=== PATIENT | male | born 1960 | race Caucasian/White ===

== ENCOUNTER 2016-10-09 17:21 | Emergency (ER) | payer OTHER ==
[~2016-10-09] VITALS: Ht 172.7 cm; Wt 75.0 kg
[~2016-10-09 17:21] MED LIST: DICL75 PO; PENI500T PO; Z.0.NO CURRENT MEDS
[2016-10-09 17:25] VITALS: BP 139/80; PULSE 75; RESP 20; TEMP 97.9; O2SAT 99
--- NOTE | 2016-10-09 17:27 | PD ---
Physical Exam Date Seen by Provider: Oct 09, 2016 Time Seen by Provider: 17:26 Narrative 55 yo male here for lower back pain. Possible injury from twisting. Pain is severe per patient. Cannot sit. No falls. Pain does not radiate. Vitals are stable in triage. Awaiting Bed placement. Data Data Last Documented VS Vital Signs Date Time Temp Pulse Resp B/P Pulse Ox O2 Delivery O2 Flow Rate FiO2 10/09/16 17:25 97.9 75 20 139/80 99 Room Air [facility] Medical Record Reviewed: Yes Supervised Visit with FARZAD: Alirio Donald Oct 09, 2016 17:27
[2016-10-09] MEDS ORDERED: CYCL1TAB29 PO (19:30)
[2016-10-09] MEDS ORDERED: DICL75TA PO (19:30)
--- NOTE | 2016-10-09 19:34 | PD ---
HPI Chief Complaint: Back/ Neck Pain or Injury Time Seen by Provider: 19:32 Travel History International Travel<30 days: No Contact w/Intl Traveler<30days: No Traveled to known affect area: No History of Present Illness HPI 55-year-old male presents to emergency Department with complaints of left lower back pain 2 days. He states that he felt that he had twisted awkwardly and pulled his back. States the pain in his left lower back into his left buttocks. Pain is moderate. Worse with bending and movement. No alleviating factors. No acute bowel or bladder changes. Denies history of back problems in the past. [facility] Past Medical History Medical History: Denies Significant Hx Blood Disorders: No Cancer: No Cardiovascular Problems: No Endocrine: No Genitourinary: No Immune Disorder: No Musculoskeletal: Yes (CHRONIC BACK PAIN) Neurologic: No Psychiatric: No Reproductive: No Respiratory: No Tetanus Vaccination: < 5 Years Past Surgical History Surgical History: No Previous Surgery AICD: No Arteriovenous Shunt: No Insulin Pump: No Joint Replacement: No Social History Alcohol Use: No Tobacco Use: Yes (1/2 PPD) Substance Use: No Allergies-Medications (Allergen,Severity, Reaction): Coded Allergies: No Known Allergies (Verified , 10/09/16) Reported Meds & Prescriptions Reported Meds & Active Scripts Active Diclofenac Sodium DR (Diclofenac Sodium) 75 Mg Tabdr 75 Mg PO BID Flexeril (Cyclobenzaprine HCl) 10 Mg Tab 10 Mg PO TID Review of Systems Except as stated in HPI: all other systems reviewed are Neg Physical Exam Narrative GENERAL: Well-developed, well-nourished in no apparent distress. Nontoxic appearing. HEAD: Normocephalic, atraumatic. EYES: Pupils equal round and reactive. Extraocular motions intact. No scleral icterus. No injection or drainage. ENT: Nose clear. Throat without erythema, tonsillar hypertrophy or exudate. Uvula midline. Airway patent. NECK: Trachea midline. Supple, nontender, moves head freely. No central bony tenderness or spasm. CARDIOVASCULAR: Regular rate and rhythm without murmurs, gallops, or rubs. RESPIRATORY: Clear to auscultation. Breath sounds equal bilaterally. No wheezes , rales, or rhonchi. GASTROINTESTINAL: Abdomen soft, non-tender, nondistended. No hepato-splenomegaly , or palpable masses. No guarding. EXTREMITIES: No clubbing, cyanosis, or edema. No joint tenderness. BACK: No central bony tenderness to palpation of the dorsal lumbar spine. Patient has left paralumbar tenderness with mild spasm. Decreased range of motion to 70. Heel and toe stand. No saddle anesthesia. Without deformity. No flank tenderness. NEUROLOGICAL: Awake, alert and oriented x 3 .Cranial nerves grossly intact. Motor and sensory grossly within normal limits. Normal speech. Data Data Last Documented VS Vital Signs Date Time Temp Pulse Resp B/P Pulse Ox O2 Delivery O2 Flow Rate FiO2 10/09/16 17:25 97.9 75 20 139/80 99 Room Air Orders Cyclobenzaprine (Flexeril) (10/09/16 19:45) Naproxen (Naprosyn) (10/09/16 19:45) MDM Medical Decision Making Medical Screen Exam Complete: Yes Emergency Medical Condition: Yes Medical Record Reviewed: Yes Differential Diagnosis MDM: High Differential diagnoses: AAA,Fracture, sprain, strain, HNP, nerve or vascular injury, epidural abscess, pilonidal cyst, pyelonephritis, UTI, nephrolithiasis, ureterolithiasis Narrative Course Patient's given Naprosyn 500 and Flexeril 10 mg by mouth. This is acute back strain Diagnosis Primary Impression: acute back sprain Patient Instructions: General Instructions Departure Forms: Tests/Procedures, Work Release Special Instructions: No work 3 days. Additional Instructions: Rest. Ice for the next 3 days followed by heat . Flexeril and Voltaren. Follow-up with a primary care doctor in one week. Return to the ER for emergencies. Med/Other Pt SpecificInfo: Prescription(s) given Scripts Diclofenac Sodium DR 75 Mg Tabdr75 Mg PO BID #20 TAB Prov:Jatinder Armendariz MD 10/09/16 Cyclobenzaprine (Flexeril)10 Mg Tab10 Mg PO TID #30 TAB Prov:Jatinder Armendariz MD 10/09/16 Disposition: 01 DISCHARGE HOME Condition: Stable Freddy Fine Oct 09, 2016 19:34
[2016-10-09] MEDS ORDERED: NAPROXEN 500 MG TAB PO ONE (19:45)
[2016-10-09] MEDS ORDERED: CYCLOBENZAPRINE HCL 10 MG TAB PO ONE (19:45)
== END 2016-10-09 20:06 | disposition home or self-care (01) ==
LOC: NEPK 17:21
DX: S39.012A Strain of muscle, fascia and tendon of lower back, initial encounter (principal); F17.200 Nicotine dependence, unspecified, uncomplicated; Z87.39 Personal history of other diseases of the musculoskeletal system and connective tissue; X50.1XXA Overexertion from prolonged static or awkward postures, initial encounter
CPT/HCPCS: 99284

== ENCOUNTER 2017-05-23 00:15 | Emergency (ER) | payer OTHER ==
[~2017-05-23] VITALS: Ht 180.3 cm; Wt 70.0 kg
[~2017-05-23 00:15] MED LIST changes: +CYCL10TA PO; -DICL75 PO; +DICL75TA PO; -PENI500T PO; -Z.0.NO CURRENT MEDS
[2017-05-23 00:22] VITALS: BP 124/81; PULSE 80; RESP 16; TEMP 97.3; O2SAT 100
--- NOTE | 2017-05-23 02:01 | PD ---
HPI Chief Complaint: GI Complaint Time Seen by Provider: 01:28 Travel History International Travel<30 days: No Contact w/Intl Traveler<30days: No Traveled to known affect area: No History of Present Illness HPI Patient is a 56-year-old male who says he has had constipation for 2 days. He says he does not have a history of constipation is only ever happened to him once before. Said colonoscopies yearly since he was 51 at the [facility]. He has no nausea no vomiting no diarrhea constipation only and left lower quadrant pain. Has no chest pain no nausea no vomiting. No cardiac history, no lung history no renal history. No change in his diet. No family history of colon cancer. Patient took an Ex-Lax chocolate bar "that they sell at the [employer] store without any relief" of his symptoms . he can feel as if his pressure right at his rectum PFSH Past Medical History Blood Disorders: No Cancer: No Cardiovascular Problems: No Endocrine: No Genitourinary: No Immune Disorder: No Musculoskeletal: Yes (CHRONIC BACK PAIN) Neurologic: No Psychiatric: No Reproductive: No Respiratory: No Past Surgical History AICD: No Arteriovenous Shunt: No Insulin Pump: No Joint Replacement: No Social History Alcohol Use: No Tobacco Use: Yes (/2 PPD) Substance Use: No Allergies-Medications (Allergen,Severity, Reaction): Coded Allergies: No Known Allergies (Verified Adverse Reaction, Unknown, 05/23/17) Reported Meds & Prescriptions Reported Meds & Active Scripts Active Miralax Powder (Polyethylene Glycol 3350 Powder) 17 Gm Powd 17 Gm PO DAILY Mix and dissolve one measuring cap-ful (17 grams) in water or juice. Diclofenac Sodium DR (Diclofenac Sodium) 75 Mg Tabdr 75 Mg PO BID Flexeril (Cyclobenzaprine HCl) 10 Mg Tab 10 Mg PO TID Physical Exam Narrative GENERAL: mild uncomfortable appearance SKIN: Warm and dry. HEAD: Atraumatic. Normocephalic. EYES: Pupils equal and round. No scleral icterus. No injection or drainage. ENT: No nasal bleeding or discharge. Mucous membranes pink and moist. NECK: Trachea midline. No JVD. CARDIOVASCULAR: Regular rate and rhythm. RESPIRATORY: No accessory muscle use. Clear to auscultation. Breath sounds equal bilaterally. GASTROINTESTINAL: Abdomen suprapubic to LLQ pain with palpation, nondistended. Hepatic and splenic margins not palpable. left lower quad pain MUSCULOSKELETAL: Extremities without clubbing, cyanosis, or edema. No obvious deformities. NEUROLOGICAL: Awake and alert. No obvious cranial nerve deficits. Motor grossly within normal limits. Five out of 5 muscle strength in the arms and legs. Normal speech. PSYCHIATRIC: Appropriate mood and affect; insight and judgment normal. RECTAL EXAM, Large amount of hard stool felt in rectal vault. MANUAL disempaction and fleet enema placed during rectal exam, with successful large BM after on bedside commode Data Data Last Documented VS Orders Orders Fleets Enema (Adult) (Fleets Enema (Adul (05/23/17 02:30) Ed Discharge Order (05/23/17 02:59) [facility] Medical Decision Making Medical Screen Exam Complete: Yes Emergency Medical Condition: Yes Differential Diagnosis constipation vs colonic mass vs medication induced constipation .. Narrative Course enema and digital attempt to disempact. then bedside commode and successful BM pt feels great relief Procedures Procedure Narrative manual disimpaction by this MD and enema solution inserted Diagnosis Primary Impression: Constipation Qualified Codes: K59.00 - Constipation, unspecified Patient Instructions: Constipation (ED), General Instructions Scripts Polyethylene Glycol 3350 Powder (Miralax Powder) 17 Gm Powd 17 GM PO DAILY for Constipation, #1 CAN 0 Refills Mix and dissolve one measuring cap-ful (17 grams) in water or juice. Prov: West Swanson MD 05/23/17 Disposition: 01 DISCHARGE HOME West Swanson MD May 23, 2017 02:01
[2017-05-23] MEDS ORDERED: SOD PHOSPHATE/SOD BIPHOSPHATE (ADULT) ENEMA 133ML RECTAL ONE (02:30)
[2017-05-23] MEDS ORDERED: MIRA3350 PO (03:01)
== END 2017-05-23 03:25 | disposition home or self-care (01) ==
LOC: NEPC 00:15
DX: K59.00 Constipation, unspecified (principal); F17.210 Nicotine dependence, cigarettes, uncomplicated; Z79.899 Other long term (current) drug therapy
CPT/HCPCS: 99283